=== PATIENT | male | born 1985 | race Caucasian/White ===

== ENCOUNTER 2025-02-09 02:29 | Emergency (ER) | payer OTHER, SELFPAY ==
[2025-02-09 02:30] VITALS: BP 151/92
[2025-02-09 02:36] LABS: Glucose - Point of Care 118 mg/dl (70-99)
--- NOTE | 2025-02-09 02:43 | ED.GENMED ---
History of Present Illness
General
Chief Complaint: Alcohol Problem
Source: patient and police
Exam Limitations: none
Time Seen by Provider: 02/09/25 02:32
Nursing documentation reviewed up to this point in time: agreed with
History of Present Illness
History of Present Illness:
39-year-old male presents to the emergency room in police custody for medical screening exam. He was arrested tonight for DUI and blew a high number on breathalyzer�per their protocol requires medical screening examination. Patient is awake and
alert, says that he had a few beers today after he arrived home. He has no physical complaints says that he feels fine. Denies any drug use.
Review of Systems
Review of Systems
All Other Systems: ROS reviewed and negative except as documented in HPI and ROS
Respiratory: Denies trouble breathing
Cardiac: Denies chest pain
ABD/GI: Denies abdominal pain or nausea
: Denies flank pain
Musculoskeletal: Denies joint pain, neck pain or back pain
Neurological: Denies dizzy or headache
Phy Exam
Physical Exam
Physical Exam:
General: Awake, alert, oriented x3; no acute distress; clinically intoxicated
Head: Normocephalic, atraumatic
Eyes: Conjunctiva normal, EOMI, pupils equal round reactive to light bilaterally
Throat: Airway intact, handling secretions
Neck: Trachea midline, supple without meningismus
Lungs: Clear to auscultation bilaterally, no wheezing, rales, rhonchi
Heart: Regular rate and rhythm, no murmurs, gallops, or rubs
Abd: Soft, non distended, nontender
Back: No signs of trauma the back and flank and no tenderness in the thoracic or lumbar spine
Skin: no rash or signs of acute trauma
Extremities: Atraumatic, moving all extremities comfortably, warm and well-perfused
Scores
Heart Failure Risk
Heart Failure Risk Score: Not Applicable
Heart Score for Chest Pain Patients
STEMI patient?: Not applicable
Withdrawal Assessment of Alcohol
Withdrawal Assessment Completed?: Not applicable
Course
Orders/Labs/Results
Orders:
Orders
02/09/25 02:32
Bedside Glucose- Treatment ONCE
Abnormal Lab Results
02/09/25
02:35
POC Glucose 118 H mg/dl
(70-99)
Vital Signs
Initial and Last Documented VS:
Initial Vital Signs
Temp Pulse Resp BP Pulse Ox
36.4 C 98 20 151/92 99
02/09/25 02:30 02/09/25 02:30 02/09/25 02:30 02/09/25 02:30 02/09/25 02:30
Last Documented Vital Signs
Temp Pulse Resp BP Pulse Ox
36.4 C 98 20 151/92 99
02/09/25 02:30 02/09/25 02:30 02/09/25 02:30 02/09/25 02:30 02/09/25 02:30
MDM/Problems Addressed
Differential Diagnosis Includes:
Alcohol intoxication
MDM/Problems Addressed:
39-year-old male presents to the emergency room intoxicated after admitted alcohol use tonight. Brought in by police after he was apparently arrested under suspicion of DUI; per their protocol due to high number on breathalyzer requesting medical
screening exam. He has no acute complaints. Vitals and exam as above. Clinically appears intoxicated but he is awake and alert. No vomiting. Says that he feels well. No indication for any emergent medical testing at this point in time. Stable
for discharge into police custody after legal blood draw per police request.
*Pulse Oximetry
Patient hypoxic: no
*Critical Care Note
Total Time (30-74mins, 75-104mins- exclusive of procedures): Not Applicable
Data Reviewed
Source: patient and police
ED Attending Note
-
Portions of this chart may have been created with voice recognition software.� Occasional wrong word or��sound alike� substitutions may have occurred due to the inherent limitations of voice recognition software.
Discharge Plan
Departure
Patient Disposition: Home (Routine Discharge)
Date of Disposition: 02/09/25
Time of Disposition: 02:38
Patient with high blood pressure during this ER visit?: Yes
Discharge Problem:
Acute alcohol intoxication, Encounter for medical screening examination
Instructions: Alcohol intoxication - ED discharge instructions, BLOOD PRESSURE
Referrals:
UNKNOWN - PT DOES,NOT KNOW [Family Provider] -
Activity Restrictions/Additional Instructions:
DO NOT DRINK ALCOHOL--IT CAN BE VERY DANGEROUS AND LEAD TO ART CLASS MODEL HEALTH ISSUES.
Interventions
Interventions:
*Risk Screen - Suicide Last Done: 02/09/25 02:30
*General Assessment Last Done: 02/09/25 02:30
*Neglect/Abuse Screening Last Done: 02/09/25 02:30
*ED- Fall Risk Assessment Last Done: 02/09/25 02:30
*ED COVID-19 Vaccine History Last Done: 02/09/25 02:30
*Nursing Disposition Last Done: 02/09/25 02:42
ED- Neurological Assessment Last Done: 02/09/25 02:42
ED-Psychological Assessment Last Done: 02/09/25 02:42
Discharge Date and Time
Print Language: MAORI
== END 2025-02-09 02:42 ==
LOC: EMR 02:29
PROVIDERS: EMERGENCY PHYSICIAN Emergency Medicine
DX: F10.129 Alcohol abuse with intoxication, unspecified (principal); Y90.9 Presence of alcohol in blood, level not specified
CPT/HCPCS: 99283; 82962